=== PATIENT | female | born 1950 | race Caucasian/White ===

== ENCOUNTER → 2017-02-25 | Outpatient (CLI) | payer MEDICARE, MEDICAID, OTHER | END | disposition home or self-care (01) | LOC: CFH 09:30 | PROVIDERS: ATTEND Internal Medicine | DX: Z12.31 Encounter for screening mammogram for malignant neoplasm of breast (principal) | CPT/HCPCS: G0202 ==

== ENCOUNTER → 2020-02-08 | Outpatient (CLI) | payer OTHER | END | disposition home or self-care (01) | LOC: CFH 07:27 | PROVIDERS: ATTEND Specialist | DX: R92.8 Other abnormal and inconclusive findings on diagnostic imaging of breast (principal); L29.8 Other pruritus | CPT/HCPCS: 77066; G0279 ==